=== PATIENT | female | born 1995 | race African-American/Black ===

== ENCOUNTER 2021-03-04 14:57 | Emergency (ER) | payer OTHER, SELFPAY ==
--- NOTE | ~2021-03-04 | XR_ITS ---
EXAMINATION: XR chest 1V portable DATE: 03/04/2021 16:14 INDICATION: Vomiting TECHNIQUE: frontal view of the chest was obtained. COMPARISON: None FINDINGS: The lungs are clear with no focal airspace opacities, pulmonary edema, pleural effusion or pneumothor ax. The cardiomediastinal silhouette is normal. Visualized bones and soft tissues are unremarkable. IMPRESSION: 1. Normal chest radiograph. Reviewed, dictated and finalized at location A. [employer] TECHNICIAN IMPRESSION: 1. Normal chest radiograph.
[2021-03-04 15:16] VITALS: BP 119/64; PULSE 99; RESP 14; TEMP 36.2; O2SAT 100
[2021-03-04] MEDS: SODIUM CHLORIDE 0.9% IV 1,000 ML 999 ML IV CONT (16:21)
[2021-03-04] MEDS: ONDANSETRON INJ 4 MG/2 ML VIAL IV PUSH (16:21)
[2021-03-04 16:28] LABS: Basophils Percent Auto 0.4 % (0.2-1.2); Eosinophils Percent Auto 0.1 % (0-4.4); Hematocrit 40.9 % (37.0-47.0); Hemoglobin 14.3 g/dL (12.0-15.0); Immature Granulocyte Absolute 0.03 K/mm3 (0.00-0.031); Immature Granulocyte Percent A 0.4 % (0-0.5); Lymphocytes Absolute Auto 1.17 K/mm3 (0.9-3.2); Lymphocytes Percent Auto 14.5 % (18.3-44.2); Mean Corpuscular Hemoglobin 32.1 pg (26-34); Mean Corpuscular Volume 91.9 fl (80-100); Mean Platelet Volume 9.4 fl (7.4-10.4); Monocytes Absolute Auto 0.4 K/mm3 (0.1-0.6); Monocytes Percent Auto 5.1 % (2.6-8.5); Neutrophils Absolute Auto 6.4 K/mm3 (1.3-6.7); Neutrophils Percent Auto 79.5 % (45.5-73.1); Platelet Count Result 276 k/mm3 (150-375); Red Blood Count 4.45 M/mm3 (4.2-5.4); Red Cell Distribution Width 11.7 % (11.5-14.5); White Blood Count 8.1 K/mm3 (4.5-10.0)
[2021-03-04 16:33] LABS: Add Urine Microscopic? YES; Appearance Urine Cloudy (Clear); Bilirubin Urine Negative (Negative); Blood Urine Negative (Negative); Color Urine Yellow (Yellow); Glucose Urine UA Negative (Negative); Ketones Urine Negative (Negative); Leukocyte Esterase Ur 2+ LEU/UL (Negative); Mucus Urine Rare /lpf; Nitrate Urine Negative (Negative); Protein Urine Negative (Negative); RBC Urine 0-2 /hpf (0-2); Specific Grav Ur 1.021 (1.001-1.035); Squamous Epithelial Cell Urine Moderate /hpf (Few); WBC Urine 31-50 /hpf
[2021-03-04 16:38] LABS: Alanine Aminotransferase 19 U/L (4-35); Albumin Level 4.3 g/dL (3.5-5.1); Alkaline Phosphatase 49 U/L (38-126); Anion Gap 6 mmol/L (8-16); Aspartate Amino Transferase 32 U/L (14-36); Bilirubin,Total 0.8 mg/dL (0.2-1.3); Blood Urea Nitrogen 11 mg/dL (7-17); Calcium 9.2 mg/dL (8.4-10.2); Carbon Dioxide 25 mmol/L (22-30); Chloride 103 mmol/L (98-107); Estimated Glomerular Filt Rate > 60; Glucose 98 mg/dL (65-110); Lipase 47 U/L (23-300); Potassium 3.7 mmol/L (3.4-5.0); Sodium 134 mmol/L (137-145)
--- NOTE | 2021-03-04 19:00 | PC.NURSE ---
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 Pt awaiting dc paperwork for son.
--- NOTE | 2021-03-04 19:24 | ED.GENADULT ---
HPI - General Adult General Chief complaint: Nausea/Vomiting/Diarrhea Stated complaint: Nausea/vomiting. Time Seen by Provider: 03/04/21 15:51 Source: patient Mode of arrival: ambulatory Limitations: no limitations History of Present Illness HPI narrative: Patient is 25-year-old female with 2 days of nausea and vomiting. Patient reports having a few episodes of intermittent abdominal cramping. Patient reports that she was seen at [place] emergency department yesterday with no work-up was done and they told tell her that her symptoms were due to to the fact that she smokes marijuana. Patient reports she has had decreased appetite due to nausea and vomiting. She reports she has been able to sip some fluids but has not drank very much. Patient denies fever, chills, chest pain, shortness of breath, diarrhea. Patient is unaware if anything that she ate or drank that trigger her symptoms. Patient denies . Related Data Allergies Allergy/AdvReac Type Severity Reaction Status Date / Time No Known Allergies Allergy Verified 06/27/13 08:02 Review of Systems Review of Systems: CONSTITUTIONAL: Denies fever, chills, or sweats. EYES: Denies visual changes, redness, or discharge. ENT: Denies rhinorrhea, congestion, sore throat, or otalgia. CARDIOVASCULAR: Denies chest pain, palpitations, or edema. RESPIRATORY: Denies cough or dyspnea. GASTROINTESTINAL: Reports nausea and vomiting denies abdominal pain, or diarrhea. GENITOURINARY: Denies dysuria or hematuria. SKIN: Denies rash or itching. MUSCULOSKELETAL: Denies back pain, joint pain, or myalgia. NEUROLOGIC: Denies headache, numbness, dizziness, or weakness. PSYCHIATRIC: Denies anxiety or depression. Exam Narrative: GENERAL: Well-appearing, well-nourished, and in no acute distress. HEAD: Normocephalic, atraumatic. EYES: PERRLA and EOMI. CHEST: Clear to auscultation. No respiratory distress. No wheezes rales or rhonchi HEART: Regular rate and rhythm. No murmur heard. Normal peripheral pulses. ABDOMEN: Soft, nontender, nondistended, normal active bowel sounds. EXTREMITIES: Normal range of motion. No edema. SKIN: Warm, dry, no rash. NEURO: No focal deficits. Alert and oriented x3. PSYCH: Normal mood and affect. Course Vital Signs Vital signs: Vital Signs Temperature 97.1 F L 03/04/21 15:16 Pulse Rate 99 03/04/21 15:16 Respiratory Rate 14 03/04/21 15:16 Blood Pressure 119/64 03/04/21 15:16 Pulse Oximetry 100 03/04/21 15:16 Temperature 97.1 F L 03/04/21 15:16 Pulse Rate 99 03/04/21 15:16 Respiratory Rate 14 03/04/21 15:16 Blood Pressure 119/64 03/04/21 15:16 Pulse Oximetry 100 03/04/21 15:16 Medical Decision Making MDM Narrative Medical decision making narrative: Patient reports feeling improved after having fluids and Zofran. Discussed with patient that her urine showed some bacteria which we will treat. I feel that her nausea and vomiting may be due to gastroenteritis either viral or from medication. Patient does not show signs of infection so we will treat symptomatically. Patient can handle p.o. challenge. Patient instructed to follow-up with primary care for further evaluation if symptoms persist. Patient instructed to return to emergency department if she has any worsening or emergent symptoms. Vital Signs Vital Signs: Vital Signs Temperature 97.1 F L 03/04/21 15:16 Pulse Rate 99 03/04/21 15:16 Respiratory Rate 14 03/04/21 15:16 Blood Pressure 119/64 03/04/21 15:16 Pulse Oximetry 100 03/04/21 15:16 Temperature 97.1 F L 03/04/21 15:16 Pulse Rate 99 03/04/21 15:16 Respiratory Rate 14 03/04/21 15:16 Blood Pressure 119/64 03/04/21 15:16 Pulse Oximetry 100 03/04/21 15:16 Lab Data Result diagrams: 03/04/21 16:15 03/04/21 16:15 Labs: Lab Results 03/04/21 03/04/21 03/04/21 Range/Units 16:15 16:15 16:20 WBC 8.1 (4.5-10.0) K/mm3 RBC 4.45 (4.2-5.4) M/
--- NOTE | 2021-03-04 19:56 | PC.NURSE ---
parent and child both missing from room. mothers iv found attached to bag of fluids in trash can.
--- NOTE | 2021-03-12 08:29 | PC.NURSE ---
LATE ENTRY This note is being entered to document information to the patient's record. The following information was omitted on [03/04/21], by [Teresa Parra RN]. NS stop time is 1715, 1000ml infused
--- NOTE | 2021-05-06 17:13 | PC.NURSE ---
LATE ENTRY This note is being entered to document information to the patient's record. The following information was omitted on [03/04/21], by [Leidy Parra RN]. Stop time for NS 9680.
== END 2021-03-04 19:59 | disposition home or self-care (01) ==
PROVIDERS: Physician Assistant; Emergency Provider Emergency Medicine
DX: N30.00 Acute cystitis without hematuria (principal); R11.2 Nausea with vomiting, unspecified
CPT/HCPCS: 36415; 71045; 80053; 81001; 83690; 85025; 87077; 87086; 87088; 96361; 96374; 99284; J2405; J7030